=== PATIENT | female | born 2000 | race Hispanic/Latino ===

== ENCOUNTER 2020-03-23 20:24 | Emergency (ER) | payer SELFPAY ==
--- NOTE | 2020-03-23 22:12 | XRay Report ---
RIGHT KNEE 3 VIEWS INDICATION / CLINICAL INFORMATION: Skating injury one week ago with right knee pain and swelling. COMPARISON: None available. FINDINGS: BONES / JOINT(S): The joint spaces are well-maintained. There is no evidence of fracture, subluxation or joint effusion. SOFT TISSUES: No significant abnormality. ADDITIONAL FINDINGS: None. Signer Name: Forrest Wilson MD Signed: 03/23/2020 10:07 PM Workstation Name: [id number]
[2020-03-23] MEDS ORDERED: IBUPROFEN 800 MG TAB PO ONE (23:46)
[2020-03-23] MEDS ORDERED: ACETAMINOPHEN 500 MG TAB PO ONE (23:46)
[2020-03-23] MEDS ORDERED: ACETAMINOPHEN 325 MG TAB PO ONE (23:59)
[2020-03-23] MEDS ORDERED: IBUPROFEN 600 MG TAB PO ONE (23:59)
--- NOTE | 2020-03-24 01:04 | Emergency Department Report ---
ED Fall HPI - General Chief Complaint: Extremity Injury, Lower Stated Complaint: RIGHT KNEE PAIN Source: patient Mode of arrival: Ambulatory - History of Present Illness Initial Comments: Patient is a 19-year-old white female with no past medical history who presents to the ED with complaint of acute onset severe right knee pain with swelling after she tripped and fell down when skating 2 days ago. Patient states that she has not been able to bear weight adequately in the right leg because of severe right knee pain. Patient denies head or neck injuries, back pain, hip pain, nausea and vomiting, loss of consciousness, numbness and tingling or weakness of lower extremities bilaterally, seizures, syncope or change in vision. 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 denies: headache, neck pain, numbness, weakness, chest paint, shortness of breath, hematuria, unable to walk, lightheaded, vertigo, confusion - Related Data Previous Rx's Medication Instructions Recorded Last Taken Type Cyclobenzaprine HCl [Flexeril 5 MG 5 mg PO TID PRN #12 tab 03/24/20 Unknown Rx TAB] Naproxen 500 mg PO Q12H PRN #24 tablet 03/24/20 Unknown Rx Allergies Allergy/AdvReac Type Severity Reaction Status Date / Time No Known Allergies Allergy Unverified 03/23/20 21:44 ED Review of Systems ROS: Stated complaint: RIGHT KNEE PAIN Other details as noted in HPI Constitutional: denies: chills, fever Eyes: denies: eye pain, eye discharge, vision change ENT: denies: ear pain, throat pain Respiratory: denies: cough, shortness of breath, wheezing Cardiovascular: denies: chest pain, palpitations Endocrine: no symptoms reported Gastrointestinal: denies: abdominal pain, nausea, diarrhea Genitourinary: denies: urgency, dysuria, discharge Musculoskeletal: joint swelling (Right knee swelling), arthralgia (Right knee pain and swelling). denies: back pain Skin: change in color (Anterior right knee ecchymosis). denies: rash, lesions Neurological: denies: headache, weakness, paresthesias Psychiatric: denies: anxiety, depression Hematological/Lymphatic: denies: easy bleeding, easy bruising ED Past Medical Hx - Past Medical History Previous Medical History?: No - Surgical History Past Surgical History?: No - Social History Smoking Status: Never Smoker Substance Use Type: None - Medications Home Medications: Home Medications Medication Instructions Recorded Confirmed Last Taken Type Cyclobenzaprine HCl [Flexeril 5 MG 5 mg PO TID PRN #12 tab 03/24/20 Unknown Rx TAB] Naproxen 500 mg PO Q12H PRN #24 tablet 03/24/20 Unknown Rx ED Physical Exam - General Limitations: No Limitations General appearance: alert, in no apparent distress - Head Head exam: Present: atraumatic, normocephalic, normal inspection - Eye Eye exam: Present: normal appearance, PERRL, EOMI Pupils: Present: normal accommodation - ENT ENT exam: Present: normal exam, normal orophraynx, mucous membranes moist, TM's normal bilaterally, normal external ear exam - Neck Neck exam: Present: normal inspection, full ROM - Respiratory Respiratory exam: Present: normal lung sounds bilaterally. Absent: respiratory distress, wheezes, rhonchi, chest wall tenderness, accessory muscle use, decreased breath sounds - Cardiovascular Cardiovascular Exam: Present: regular rate, normal rhythm, normal heart sounds. Absent: systolic murmur, diastolic murmur, rubs, gallop - GI/Abdominal GI/Abdominal exam: Present: soft, normal bowel sounds. Absent: tenderness, rebound, hyperactive bowel sounds, hypoactive bowel sounds, organomegaly - Extremities Exam Extremities exam: Present: normal inspection, full ROM, tenderness (Palpable right knee tenderness with mild swelling and ecchymosis), normal capillary refill, joint swelling (Mild right knee swelling). Absent: calf tenderness - Back Exam Back exam: Present: normal inspection, full ROM. Absent: tenderness, CVA tenderness (R), CVA tenderness (L), muscle spasm, paraspinal tenderness, vertebral tenderness - Neurological Exam Neurological exam: Present: alert, oriented X3, CN II-XII intact, normal gait, reflexes normal - Psychiatric Psychiatric exam: Present: normal affect, normal mood - Skin Skin exam: Present: warm, dry, intact, normal color, ecchymosis (Anterior right knee ecchymosis). Absent: rash ED Course Vital Signs 03/23/20 20:58 Temperature 98.4 F Pulse Rate 88 Respiratory 18 Rate Blood Pressure 112/65 O2 Sat by Pulse 100 Oximetry ED Medical Decision Making - Radiology Data Radiology results: report reviewed, image reviewed Findings [facility] [address] [place] [address] XRay Report Signed Patient: CARROLL LAZARO MR#: [id number] : 2000 Acct:[id number] Age/Sex: 19 / F ADM Date: 03/23/20 Loc: ED Attending Dr: Ordering Physician: CELESTE COLBERT Date of Service: 03/23/20 Procedure(s): XR knee 3V RT Accession Number(s): [id number] cc: CELESTE COLBERT Fluoro Time In Minutes: RIGHT KNEE 3 VIEWS INDICATION / CLINICAL INFORMATION: Skating injury one week ago with right knee pain and swelling. COMPARISON: None available. FINDINGS: BONES / JOINT(S): The joint spaces are well-maintained. There is no evidence of fracture, subluxation or joint effusion. SOFT TISSUES: No significant abnormality. ADDITIONAL FINDINGS: None. Signer Name: Forrest Wilson MD Signed: 03/23/2020 10:07 PM Workstation Name: [id number] Transcribed By: RT Dictated By: Forrest Wilson MD Electronically Authenticated By: Forrest Wilson MD Signed Date/Time: 03/23/202206 DD/ 05 TD/TT: - Medical Decision Making This is a 19-year-old white female with no past medical history who presents to the ED with complaint of acute onset severe right knee pain with swelling after she tripped and fell down when skating 2 days ago. Patient states that she has not been able to bear weight adequately in the right leg because of severe right knee pain. In the ED, patient is alert and oriented x3 and is not in distress. Patient was treated for pain in the ED and right knee x-ray shows no acute fractures or subluxations. Right knee was splinted with Rakesh wrap and the patient tolerated the procedure well. Patient was discharged home on pain medications and advised follow-up with her primary care physician in 5 to 7 days for reevaluation or return to the ED immediately if symptoms get worse. - Differential Diagnosis Knee fracture; knee sprain; knee contusion; muscle strain Critical care attestation.: If time is entered above; I have spent that time in minutes in the direct care of this critically ill patient, excluding procedure time. ED Disposition Clinical Impression: Contusion of right knee, initial encounter Sprain of right knee Qualifiers: Encounter type: initial encounter Involved ligament of knee: unspecified ligament Qualified Code(s): S83.91XA - Sprain of unspecified site of right knee, initial encounter Disposition: TO HOME OR SELFCARE Is pt being admited?: No Does the pt Need Aspirin: No Condition: Stable Instructions: Contusion, [id number], Knee Sprain, Adult, [id number] Additional Instructions: The x-ray of right knee showed no acute fracture or subluxation. The injuries to the right knee is likely due to an right knee sprain and soft tissue injuries. Therefore take medications with food, drink plenty of fluids and follow-up with your primary care physician in 7 to 10 days for reevaluation. Return to the ED immediately if symptoms get worse. Prescriptions: Cyclobenzaprine HCl [Flexeril 5 MG TAB] 5 mg PO TID PRN #12 tab PRN Reason: Muscle Spasm Naproxen 500 mg PO Q12H PRN #24 tablet PRN Reason: Pain , Severe (7-10) Referrals: [facility] [Provider Group] - 3-5 Days Forms: Work/School Release Form(ED) Time of Disposition: 01:00 Print Language: SURINAMESE
[2020-03-24 02:12] VITALS: BP 114/69
== END 2020-03-24 01:30 | disposition home or self-care (01) ==
LOC: ED 20:24
DX: S83.91XA Sprain of unspecified site of right knee, initial encounter (principal); X58.XXXA Exposure to other specified factors, initial encounter; Y93.89 Activity, other specified; Y92.89 Other specified places as the place of occurrence of the external cause; Y99.8 Other external cause status

== ENCOUNTER 2021-07-01 18:06 | Emergency (ER) | payer SELFPAY ==
[2021-07-01 18:48] VITALS: BP 110/54
[2021-07-01 19:08] LABS: Bilirubin,Urine NEG (Negative); Blood,Urine NEG (Negative); Color,Urine Yellow (Yellow); HCG Qualitative,Urine Positive (Negative); Mucus,Urine 3+ /HPF; Protein,Urine <15 mg/dL mg/dL (Negative); Urobilinogen,Urine < 2.0 mg/dL (<2.0)
== END 2021-07-01 22:18 | disposition left against medical advice (07) ==
LOC: ED 18:06
DX: O23.41 Unspecified infection of urinary tract in pregnancy, first trimester (principal); Z53.21 Procedure and treatment not carried out due to patient leaving prior to being seen by health care provider; Z3A.01 Less than 8 weeks gestation of pregnancy
CPT/HCPCS: 81001; 81025; 87086